=== PATIENT | female | born 1960 | race Caucasian/White ===

== ENCOUNTER 2021-03-06 15:14 | Emergency (ER) | payer OTHER ==
[2021-03-06] MEDS ORDERED: Bacitracin Oint 1 GM U/D Packet TOP ONE (15:30)
[2021-03-06] MEDS ORDERED: Bupivacaine 0.5% 10 ML SDV INJECT ONE (15:30)
--- NOTE | 2021-03-06 17:32 | EDM.PDOC ---
ED HPI GENERAL MEDICAL PROBLEM - General Chief Complaint: Laceration Stated Complaint: RIGHT RING FINGER PAIN Time Seen by Provider: 03/06/21 15:40 Source of Information: Reports: Patient, Family History Limitations: Reports: No Limitations - History of Present Illness INITIAL COMMENTS - FREE TEXT/NARRATIVE: 60-year-old female, generally healthy, stumbled forward injuring her right hand when she fell and jammed her hand into the concrete while playing ball. She has a deformity of the ring finger, and a fairly deep laceration on the palmar aspect of the base of the middle finger extending into the webspace between the third and fourth finger. She denies any other injury, no wrist pain or shoulder pain. Onset: Sudden Duration: Hour(s): (Within the last hour) Location: Reports: Upper Extremity, Right Associated Symptoms: Reports: No Other Symptoms - Related Data Allergies Allergy/AdvReac Type Severity Reaction Status Date / Time No Known Allergies Allergy Verified 03/06/21 15:30 Home Meds: Home Meds NK [No Known Home Meds] 03/06/21 [History] Past Medical History Gastrointestinal History: Reports: None Genitourinary History: Reports: None EXTRA HAND History: Reports: - Past Surgical History Head Surgeries/Procedures: Reports: None GI Surgical History: Reports: Appendectomy Female Surgical History: Reports: Hysterectomy Musculoskeletal Surgical History: Reports: Other (See Below) Dermatological Surgical History: Reports: None Social & Family History - Tobacco Use Tobacco Use Status *Q: Current Every Day Tobacco User Years of Tobacco use: 40 Packs/Tins Daily: 1 Used Tobacco, but Quit: No Second Hand Smoke Exposure: No - Caffeine Use Caffeine Use: Reports: Coffee - Recreational Drug Use Recreational Drug Use: No ED ROS GENERAL - Review of Systems Review Of Systems: See Below Constitutional: Denies: Fever, Chills Respiratory: Denies: Shortness of Breath GI/Abdominal: Denies: Nausea, Vomiting Neurological: Denies: Paresthesia (Sensation to the fingers are intact) Psychiatric: Reports: No Symptoms ED EXAM, SKIN/RASH Exam: See Below Exam Limited By: No Limitations General Appearance: Alert, Mild Distress (Fairly anxious, upset with injury) Head: Atraumatic Neck: Non-Tender Respiratory/Chest: Lungs Clear Neurological: Alert, Oriented Psychiatric: Anxious Skin: Warm, Dry, Other (Fairly deep laceration on the right hand as mentioned in HPI. It is 5 cm in length, starts on the palmar surface at the base of the middle finger and extends through the web space of the middle and fourth finger. There is obvious deformity of the PIP joint of the ring finger.) Course - Vital Signs Last Recorded V/S: Last Vital Signs Temp 97.4 F 03/06/21 15:38 Pulse 96 03/06/21 15:38 Resp 16 03/06/21 15:38 BP 133/70 03/06/21 15:38 Pulse Ox 98 03/06/21 15:38 - Orders/Labs/Meds Orders: Active Orders 24 hr Category Date Time Status Hand Comp Min 3V Rt [CR] Stat Exams 03/06/21 15:51 Taken Hand Comp Min 3V Rt [CR] Stat Exams 03/06/21 16:38 Taken DME for Discharge [COMM] Stat Oth 03/06/21 17:27 Ordered Meds: Medications Discontinued Medications Generic Name Dose Route Start Last Admin Trade Name Freq PRN Reason Stop Dose Admin Bacitracin 1 dose 03/06/21 15:30 03/06/21 15:37 Bacitracin Oint 1 Gm U/D Packet TOP 03/06/21 15:31 1 dose ONETIME ONE Administration Bupivacaine HCl 10 ml 03/06/21 15:30 03/06/21 15:37 Bupivacaine 0.5% 10 Ml Sdv INJECT 03/06/21 15:31 10 ml ONETIME ONE Administration - Re-Assessments/Exams Free Text/Narrative Re-Assessment/Exam: 03/06/21 17:57 The palmar aspect of the hand was sterilized with Betadine, 0.5% Marcaine was used to infiltrate the ring and middle finger with digital blocks, and also tendon sheath blocks using a total of 10 cc of Marcaine. After the anesthesia and x-ray was obtained which showed a dislocation of the PIP joint along with a very minimally displaced fracture of the middle phalanx. Using countertraction the dislocation was reduced. Seven 4-0 Ethilon sutures were used to close the laceration and approximate the edges. This was done after thorough flushing with normal saline. Postreduction x-ray was obtained which confirmed that the dislocation was reduced, topical bacitracin was applied to the wound with dressings and an ulnar gutter splint was applied to the hand. She was given a sling, started on cephalexin 500 mg 3 times a day and given 10 hydrocodone for extra pain control. Departure - Departure Time of Disposition: 17:40 Disposition: Home, Self-Care 01 Clinical Impression: Fracture/dislocation, finger, proximal/middle phalanx Laceration of right hand Qualifiers: Encounter type: initial encounter Foreign body presence: without foreign body Qualified Code(s): S61.411A - Laceration without foreign body of right hand, initial encounter Fracture of phalanx of digit of hand Qualifiers: Encounter type: initial encounter Fracture type: closed Qualified Code(s): S62.609A - Fracture of unspecified phalanx of unspecified finger, initial encounter for closed fracture - Discharge Information Instructions: Laceration Care, Adult, [id number] Referrals: PCP,None [Primary Care Provider] - Forms: ED Department Discharge Care Plan Goals: Take antibiotic 3 times a day as prescribed. Use sling for comfort and keep dressing and splint on for the next 2 days. After that you may remove it gently to wash your hand but reapply splint afterwards. Recheck in 5 to 7 days after home to ensure proper healing and further care of your fracture. Use ibuprofen or naproxen for pain, add stronger pain medication if needed. Recheck anytime if concerns of infection or not healing satisfactorily. Sepsis Event Note (ED) - Evaluation Sepsis Screening Result: No Definite Risk - Focused Exam Vital Signs: Vital Signs Temp Pulse Resp BP Pulse Ox 03/06/21 15:38 97.4 F 96 16 133/70 98 03/06/21 15:29 97.4 F 96 16 133/70 98 - My Orders Last 24 Hours: My Active Orders 03/06/21 15:51 Hand Comp Min 3V Rt [CR] Stat 03/06/21 16:38 Hand Comp Min 3V Rt [CR] Stat 03/06/21 17:27 DME for Discharge [COMM] Stat - Assessment/Plan Last 24 Hours: My Active Orders 03/06/21 15:51 Hand Comp Min 3V Rt [CR] Stat 03/06/21 16:38 Hand Comp Min 3V Rt [CR] Stat 03/06/21 17:27 DME for Discharge [COMM] Stat
--- NOTE | 2021-03-07 08:54 | CR ---
Hand Comp Min 3V Rt, Hand Comp Min 3V Rt CLINICAL HISTORY: Injury, deformity FINDINGS: There is a muscle dislocation at the fourth PIP joint. There is a comminuted fracture of the fourth middle phalanx. IMPRESSION: Dorsal dislocation at the fourth PIP joint with comminuted fracture of the fourth middle phalanx Hand Comp Min 3V Rt CLINICAL HISTORY: Postreduction FINDINGS: There is reduction of the fourth PIP dislocation. There is a comminuted nondisplaced fracture of the fourth middle phalanx.
== END 2021-03-06 17:40 | disposition home or self-care (01) ==
LOC: JP.ED 15:14
DX: S62.624A Displaced fracture of middle phalanx of right ring finger, initial encounter for closed fracture (principal); S62.622A Displaced fracture of middle phalanx of right middle finger, initial encounter for closed fracture; S63.254A Unspecified dislocation of right ring finger, initial encounter; S63.252A Unspecified dislocation of right middle finger, initial encounter; S61.411A Laceration without foreign body of right hand, initial encounter; Z72.0 Tobacco use; W17.89XA Other fall from one level to another, initial encounter
CPT/HCPCS: 12002; 26770; 73130-26-RT; 73130-RT; 99283; 99283-25; J3490